=== PATIENT | male | born 1945 | race Caucasian/White ===

== ENCOUNTER 2018-01-21 14:02 | Emergency (ER) | payer MEDICARE, OTHER ==
[~2018-01-21] VITALS: Ht 167.6 cm; Wt 73.0 kg
[~2018-01-21 14:02] MED LIST: AZIT500 PO; CEPH125SU; LACT10SY PO; MAGCIT300 PO; MAGIC MOUTHWASH; MECL25 PO; MORPHINE SULFATE; NAPR550 PO; OXYACE5T PO
[2018-01-21] MEDS ORDERED: LEVO-T112 MCG PO (14:18)
[2018-01-21] MEDS ORDERED: OMEPRAZOLE DR 20 MG (14:18)
[2018-01-21 15:29] LABS: BASOPHILS ABSOLUTE AUTO 0.05 K/mm3 (0.00-0.23); BASOPHILS PERCENT AUTO 1 % (0-2); EOSINOPHILS ABSOLUTE AUTO 0.15 K/mm3 (0.00-0.68); EOSINOPHILS PERCENT AUTO 2 % (0-6); Hematocrit 44.2 % (37.0-53.0); Hemoglobin 14.4 g/dL (13.5-17.5); IMMATURE GRAN ABSOLUTE AUTO 0.02 K/mm3 (0.00-0.10); IMMATURE GRAN PERCENT AUTO 0 % (0-1); LYMPHOCYTES ABSOLUTE AUTO 2.31 K/mm3 (0.84-5.20); LYMPHOCYTES PERCENT AUTO 26 % (21-46); MONOCYTES ABSOLUTE AUTO 0.78 K/mm3 (0.16-1.47); MONOCYTES PERCENT AUTO 9 % (4-13); Mean Corpuscular HGB 29.6 pg (26.0-34.0); Mean Corpuscular HGB Conc 32.6 g/dL (31.5-36.5); Mean Corpuscular Volume 91 fL (80-100); Mean Platelet Volume 10.8 fL (9.1-12.4); NEUTROPHILS ABSOLUTE AUTO 5.43 K/mm3 (1.96-9.15); NEUTROPHILS PERCENT AUTO 62 % (41-73); Platelet Count 226 K/mm3 (150-400); RDW Coefficient Variation 13.2 % (11.7-14.2); RDW Standard Deviation 43.7 fL (35.1-46.3); Red Blood Cell Count 4.87 M/mm3 (4.30-5.90); White Blood Cell Count 8.74 K/mm3 (4.00-11.30)
[2018-01-21 15:35] LABS: Anion Gap 4 mmol/L (6-16); Blood Urea Nitrogen 13 mg/dL (8-24); Bun/Creatinine Ratio 16.3 (12.0-20.0); CO2, Blood 29 mmol/L (21-32); Calcium, Blood 8.3 mg/dL (8.5-10.1); Chloride, Blood 107 mmol/L (98-108); Glomerular Filtration Rate >60 (60-); Glucose, Blood 94 mg/dL (70-99); Potassium, Blood 3.9 mmol/L (3.5-5.5); Sodium, Blood 140 mmol/L (136-145); Troponin I <0.015 ng/mL (0.000-0.040)
== END 2018-01-21 16:20 | disposition home or self-care (01) ==
LOC: ER 14:02
PROVIDERS: Emergency Medicine
DX: M62.838 Other muscle spasm (principal); K21.9 Gastro-esophageal reflux disease without esophagitis; E03.9 Hypothyroidism, unspecified; Z79.899 Other long term (current) drug therapy
CPT/HCPCS: 36415; 70450; 70490; 80048; 84484; 85025; 93005; 93010; 99284-25

== ENCOUNTER 2018-06-11 12:39 | Day surgery (SDC) | payer MEDICARE, OTHER ==
[~2018-06-11] VITALS: Ht 167.6 cm; Wt 72.9 kg
[~2018-06-11 12:39] MED LIST changes: +Adult Low Dose81 MG PO; +LEVO-T112 MCG PO; +Multivitamin1 EAC2 PO; +OMEPRAZOLE DR 20 MG; +TEMA30 PO
--- NOTE | 2018-06-11 15:32 | NUR ---
06/11/18 1532 Alicja Cotton PT IS UP AND DRESSED, HIS WILL NOT BE HERE UNTIL 4:00. HE IS TIMED OUT AND JUST WAITING FOR HER TO ARRIVE.
== END 2018-06-11 15:32 | disposition home or self-care (01) ==
LOC: ORSCSDS 12:39
PROVIDERS: Internal Medicine Gastroenterology
PROC: 0DBN8ZX Excision of Sigmoid Colon, Via Natural or Artificial Opening Endoscopic, Diagnostic (ICD-10-PCS; principal; 2018-06-11 14:30)
PROC: 0DBM8ZX Excision of Descending Colon, Via Natural or Artificial Opening Endoscopic, Diagnostic (ICD-10-PCS; principal; 2018-06-11 14:30)
PROC: 0DBK8ZX Excision of Ascending Colon, Via Natural or Artificial Opening Endoscopic, Diagnostic (ICD-10-PCS; principal; 2018-06-11 14:30)
DX: Z12.11 Encounter for screening for malignant neoplasm of colon (principal); D12.4 Benign neoplasm of descending colon; D12.2 Benign neoplasm of ascending colon; D12.5 Benign neoplasm of sigmoid colon; K57.30 Diverticulosis of large intestine without perforation or abscess without bleeding; Z79.899 Other long term (current) drug therapy; E03.9 Hypothyroidism, unspecified; Z79.82 Long term (current) use of aspirin
CPT/HCPCS: 88305; J1980; J7120

== ENCOUNTER → 2021-12-03 | Outpatient (CLI) | payer MEDICARE, OTHER | END | disposition home or self-care (01) | LOC: LAB SHORT 09:25 | DX: M25.532 Pain in left wrist (principal) | CPT/HCPCS: 84550 ==

== ENCOUNTER 2022-02-12 07:02 | Day surgery (SDC) | payer MEDICARE, OTHER ==
[~2022-02-12] VITALS: Ht 167.6 cm; Wt 72.3 kg
--- NOTE | 2022-02-12 10:06 | NUR ---
02/12/22 1006 Marisa Yin 10 MLS NS MIXED WITH EPI 0.05 ML (1MG/ML) PER ORDER TO MAKE EPI 1:200,000 FOR INJECTION AT [facility] BY DR MATTHEWS. 4 1/2 MLS INJECTED AT [facility] BY DR MATTHEWS.
== END 2022-02-12 12:50 | disposition home or self-care (01) ==
LOC: ORSCSDS 07:02
PROVIDERS: Otolaryngology
PROC: 0CB80ZZ Excision of Right Parotid Gland, Open Approach (ICD-10-PCS; principal; 2022-02-12 08:15)
DX: C07 Malignant neoplasm of parotid gland (principal); D36.0 Benign neoplasm of lymph nodes; E03.9 Hypothyroidism, unspecified; K21.9 Gastro-esophageal reflux disease without esophagitis; Z85.810 Personal history of malignant neoplasm of tongue; Z79.899 Other long term (current) drug therapy
CPT/HCPCS: 88307; A9270; J0171; J1100; J1885; J2405; J2704; J3010; J7120